=== PATIENT | male | born 1980 | race Caucasian/White ===

== ENCOUNTER 2021-05-28 08:08 | Emergency (ER) | payer OTHER, SELFPAY ==
--- NOTE | ~2021-05-28 | XR_ITS ---
EXAMINATION: XR chest 2V DATE: 05/28/2021 09:03 INDICATION: Centralized chest pain TECHNIQUE: frontal and lateral views of the chest were obtained. COMPARISON: None FINDINGS: Small calcified nodule at the lateral right lower lung zone consistent with old granulomatous disease . No other airspace opacities, pulmonary edema, pleural effusion or pneumothorax. The cardiomediastin al silhouette is normal. Mild thoracic spondylosis. IMPRESSION: 1. No acute cardiopulmonary disease. Reviewed, dictated and finalized at location A. L FRONT DESK CLERK
[2021-05-28 08:37] VITALS: BP 152/111; PULSE 109; RESP 14; TEMP 36.9; O2SAT 100
[2021-05-28 08:39] VITALS: PULSE 106
--- NOTE | 2021-05-28 08:49 | ECG_ITS ---
Measurements Intervals Regent Rate: 111 P: 62 [place]: 144 QRS: 11 QRSD: 106 T: 46 QT: 350 QTc: 476 Interpretive Statements SINUS TACHYCARDIA INCOMPLETE RIGHT BUNDLE BRANCH BLOCK BASELINE ARTIFACT- II, III, AVR, AVF, V1-V6 ABNORMAL ECG Electronically Signed On 05-28-2021 8:52:19 [employer] by Douglas Ruiz D.O.
--- NOTE | 2021-05-28 09:34 | PC.NURSE ---
Pt. refusing blood work at this time, demanding to see a doctor and states he will just walk out. Pt. explained that the blood work is important due to the chest pain. Pt. is refusing.
--- NOTE | 2021-05-28 09:46 | PC.NURSE ---
PATIENT REFUSED BLOOD DRAW UNTIL HE IS TREATED TOLD CHARGE NURSE, NURSE AND DR VARNER
--- NOTE | 2021-05-28 10:15 | ED.CHESTPAIN ---
HPI - Chest Pain General Chief Complaint: Chest Pain Stated Complaint: chest pain , smoked meth Time Seen by Provider: 05/28/21 10:14 Source: patient Mode of arrival: ambulatory Limitations: intoxication History of Present Illness HPI narrative: This is a 40-year-old male that presents to the emergency department for chest pain since this morning. Reports a sharp, central chest pain. Reports he did smoke meth today. He had been planning to go to rehab. Patient also reports some nausea. Denies fever, cough, or vomiting. Related Data Allergies Allergy/AdvReac Type Severity Reaction Status Date / Time haloperidol [From Haldol] Allergy Unknown Verified 05/28/21 08:40 Review of Systems Review of Systems: CONSTITUTIONAL: Denies fever CARDIOVASCULAR: Reports chest pain. Denies edema. RESPIRATORY: Denies dyspnea. GASTROINTESTINAL: Reports nausea. Denies vomiting PSYCHIATRIC: Reports anxiety All systems reviewed & are unremarkable except as noted in HPI and below PMFSH Past Medical History Medical History (Updated 05/28/21 @ 10:58 by Xuan Baker PA-C) History of drug abuse Social History Social History (Updated 05/28/21 @ 10:57 by Xuan Baker PA-C) Smoking status: Current every day smoker Substance use: current Substance use type: amphetamines Exam Narrative: GENERAL: Disheveled, well-nourished, and in no acute distress. HEAD: Normocephalic, atraumatic. EYES: EOMI. ENT: Mucous membranes moist. Oropharynx without tonsillar hypertrophy exudate or other lesions. CHEST: Clear to auscultation. No respiratory distress. No wheezes rales or rhonchi HEART: Regular rate and rhythm. No murmur heard. Normal peripheral pulses. ABDOMEN: Soft, nontender, nondistended, normal active bowel sounds. EXTREMITIES: Normal range of motion. No edema. SKIN: Warm, dry, no rash. NEURO: No focal deficits. Alert and oriented x3. PSYCH: Anxious Course Vital Signs Vital signs: Vital Signs Temperature 98.5 F 05/28/21 08:37 Pulse Rate 109 H 05/28/21 08:37 Respiratory Rate 14 05/28/21 08:37 Blood Pressure 152/111 H 05/28/21 08:37 Pulse Oximetry 100 05/28/21 08:37 Temperature 98.5 F 05/28/21 08:37 Pulse Rate 94 05/28/21 10:32 Respiratory Rate 18 05/28/21 10:32 Blood Pressure 158/110 H 05/28/21 10:32 Pulse Oximetry 100 05/28/21 10:32 MDM - Chest Pain MDM Narrative Medical decision making narrative: Patient presents to the emergency department for chest pain that had been present since this morning. He is afebrile and nontoxic-appearing. His vitals are stable. EKG is without concerning ST changes and chest x-ray without acute cardiopulmonary abnormality. Patient refused any further laboratory evaluation or treatment of his chest pain. He will sign out AGAINST MEDICAL ADVICE. He is alert and oriented. He was given the risks of doing so. He was instructed to return to the emergency department anytime for further evaluation and treatment Imaging Data Radiologist's impression: ITS Impressions Chest X-Ray 05/28/21 09:05 IMPRESSION: 1. No acute cardiopulmonary disease. ECG Data EKG #1: ECG completion date: 05/28/21 EKG Interpretation: tachycardia, sinus rhythm, no ST changes, RBBB (Incomplete) and normal QT Critical Care Time Critical Care Time Critical Care Time: No Discharge Plan Discharge Clinical Impression: Chest pain Qualifiers: Chest pain type: unspecified Qualified Code(s): R07.9 - Chest pain, unspecified Patient Disposition: Left Against Medical Advice Condition: Guarded Prognosis Instructions: Chest Pain (ED), Methamphetamine Abuse (ED) Additional Instructions: Return to the emergency department at any time for further evaluation and treatment Follow-up/Referrals: PHYSICIAN,THERAPIST PHYS [Primary Care Provider] - Jax Ulrich MD [Physician] - 1 Day Quality HEART score for chest pain patients History: slightly suspicious ECG:
[2021-05-28 10:32] VITALS: BP 158/110; PULSE 94; RESP 18; O2SAT 100
[2021-05-28 11:01] VITALS: BP 157/115; PULSE 98; RESP 12; O2SAT 98
--- NOTE | 2021-05-28 11:01 | PC.NURSE ---
Pt. refusing medication and blood draw after being seen by provider. Pt. wishing to leave against medical advice. ERP aware.
== END 2021-05-28 10:45 | disposition left against medical advice (07) ==
PROVIDERS: Emergency Provider Emergency Medicine
DX: R07.9 Chest pain, unspecified (principal); F17.210 Nicotine dependence, cigarettes, uncomplicated
CPT/HCPCS: 71046; 93005; 99284